=== PATIENT | female | born 1990 | race Caucasian/White ===

== ENCOUNTER 2018-12-03 14:50 | Emergency (ER) | payer SELFPAY ==
--- NOTE | 2018-12-03 16:01 | RAD ---
TWO VIEW CHEST: 12/03/18 HISTORY: Cough and congestion. Lungs appear clear of infiltrate. Heart and mediastinum appear normal. Osseous structures are unremar kable. IMPRESSION: Unremarkable chest. POS: [facility]
== END 2018-12-03 16:23 | disposition home or self-care (01) ==
LOC: ERS 14:50
DX: J20.9 Acute bronchitis, unspecified (principal); F41.9 Anxiety disorder, unspecified; F32.9 Major depressive disorder, single episode, unspecified; F17.210 Nicotine dependence, cigarettes, uncomplicated
CPT/HCPCS: 71046; 94640; 94664; J7620